=== PATIENT | male | born 1930 | race Caucasian/White ===

== ENCOUNTER 2018-03-06 23:31 | Inpatient (IN) ==
[2018-03-07 00:18] LABS: Baso # (Auto) 0.1 th/mm3 (0.0-0.2); Baso % (Auto) 0.4 % (0.0-2.0); Eos # (Auto) 0.3 th/mm3 (0.0-0.4); Eos % (Auto) 2.4 % (0.0-4.0); Hematocrit 41.9 % (39.0-51.0); Hemoglobin 14.2 gm/dL (13.0-17.0); Lymph % (Auto) 8.7 % (9.0-44.0); Mean Corpuscular HGB Conc 33.9 % (32.0-36.0); Mean Corpuscular Hemoglobin 32.6 pg (27.0-34.0); Mean Corpuscular Volume 96.4 fL (80.0-100.0); Mean Platelet Volume 9.6 fL (7.0-11.0); Mono # (Auto) 0.7 th/mm3 (0.0-0.9); Mono % (Auto) 6.1 % (0.0-8.0); Neut # (Auto) 9.6 th/mm3 (1.8-7.7); Neut % (Auto) 82.4 % (16.0-70.0); Platelet Count 164 th/mm3 (150-450); Red Blood Count 4.35 mil/mm3 (4.50-5.90); Red Cell Distribution Width 12.8 % (11.6-17.2); White Blood Count 11.6 th/mm3 (4.0-11.0)
[2018-03-07 00:19] LABS: Bilirubin,Urine Negative (Negative); Clarity,Urine Clear (Clear); Color,Urine Yellow (Yellw/Straw); Glucose,Urine (UA) Negative (Negative); Hyaline Casts,Urine 1 /lpf (0-3); Leukocyte Esterase,Urine Negative (Negative); Mucus,Urine Few /lpf (Occasional); Nitrite,Urine Negative (Negative); Specific Gravity,Urine 1.016 (1.002-1.035)
--- NOTE | 2018-03-07 00:27 | XR ---
EXAM DATE: 03/07/2018 12:06 AM EDT AGE/SEX: 88 years / Male INDICATIONS: Trauma due to fall. CLINICAL DATA: This is the patient's initial encounter. Patient reports that signs and symptoms have been present for 1 day and indicates a pain score of Nonresponsive. MEDICAL/SURGICAL HISTORY: Non-responsive. Pacemaker. COMPARISON: POI, XR CHEST PA AND LAT, 03/01/2015. . FINDINGS: Dual-lead pacemaker in place. Patchy perihilar opacities with left lower lobe airspace disease. Cardi ac silhouette is mildly enlarged with indistinct central pulmonary vascularity. Remainder of the exam is unchanged. CONCLUSION: 1. Cardiomegaly with mild pulmonary vascular congestion. 2. Mild left lower lobe airspace disease. Electronically signed by: Roger Drake MD 03/07/2018 12:26 AM EDT
[2018-03-07 00:37] LABS: Albumin 3.3 g/dL (3.4-5.0); Anion Gap 13 meq/L (5-15); Aspartate Aminotransferase 19 U/L (15-37); Blood Urea Nitrogen 26 mg/dL (7-18); Calcium 8.6 mg/dL (8.5-10.1); Carbon Dioxide 22.9 meq/L (21.0-32.0); Chloride 106 meq/L (98-107); Glomerular Filtration Rate 40 mL/min (>89); Glucose,Random 181 mg/dL (74-106); Sodium 142 meq/L (136-145)
[2018-03-07 00:44] LABS: Alanine Aminotransferase 23 U/L (12-78); Alkaline Phosphatase 63 U/L (45-117); Total Protein 7.1 g/dL (6.4-8.2); Troponin I 0.02 ng/mL (0.02-0.05)
[2018-03-07 00:45] LABS: Creatine Kinase 56 U/L (39-308)
--- NOTE | 2018-03-07 00:53 | CT ---
EXAM DATE: 03/07/2018 12:38 AM EDT AGE/SEX: 88 years / Male INDICATIONS: Trauma, fall. CLINICAL DATA: This is the patient's initial encounter. Patient reports that signs and symptoms have been present for 1 day and indicates a pain score of 0/10. MEDICAL/SURGICAL HISTORY: Cerebrovascular disease. Pacemaker. RADIATION DOSE: 26.31 CTDI (mGy) COMPARISON: POI, XR SPINE CERVICAL (MIN 4 VIEWS), 08/31/2016. . TECHNIQUE: Contiguous axial images were obtained using helical multirow detector technique. The vol umetric data was post-processed with multiplanar reconstruction in oblique axial, sagittal, and coron al planes. Using automated exposure control and adjustment of the mA and/or kV according to patient s ize, radiation dose was kept as low as reasonably achievable to obtain optimal diagnostic quality purvi ges. DICOM format image data is available electronically for review and comparison. FINDINGS: OSSEOUS STRUCTURES: Vertebral body heights are maintained. Osseous structures are intact without evid ence for acute bony fracture. Dens is intact. ALIGNMENT: Loss of normal cervical lordosis with subtle less than 2 mm retrolisthesis of C5 on C6. Th ere is less than 2 mm anterolisthesis of C7 on T1. There is a normal C1-2 relationship. Facets are n ormally aligned. SOFT TISSUES: There is no significant prevertebral soft tissue hematoma. No significant cervical kinza nopathy or gross mass. The thyroid appears unremarkable. Visualized lung apices are clear without pn eumothorax. ADDITIONAL FINDINGS: Advanced multilevel degenerative spondylosis most prominently at C4-5 and C5-6 w ith severe disc space narrowing and posterior disc osteophytes. Multilevel prominent facet arthropath y most prominently on the left at C2-3 and C3-4. Mild bony central canal narrowing at C4-5 and C5-6. Bony neural foraminal narrowing at C3-4 on the right and C4-5 bilaterally. 1. No acute fracture. 2. Subtle 2 mm retrolisthesis of C5 on C6 and anterolisthesis of C7 on T1 likely due to degenerative facet arthrosis. 3. Advanced multilevel degenerative spondylosis of the cervical spine most prominently at C4-5 and C 5-6. Electronically signed by: Roger Drake MD 03/07/2018 12:52 AM EDT
--- NOTE | 2018-03-07 00:57 | CT ---
EXAM DATE: 03/07/2018 12:37 AM EDT AGE/SEX: 88 years / Male INDICATIONS: Trauma, fall. CLINICAL DATA: This is the patient's initial encounter. Patient reports that signs and symptoms have been present for 1 day and indicates a pain score of 0/10. MEDICAL/SURGICAL HISTORY: Cerebrovascular disease. Pacemaker. RADIATION DOSE: 52.13 CTDI (mGy) COMPARISON: Report of 12/10/2011. TECHNIQUE: CT of the head without contrast. Using automated exposure control and adjustment of the mA and/or kV according to patient size, radiation dose was kept as low as reasonably achievable to ob tain optimal diagnostic quality images. DICOM format image data is available electronically for revi ew and comparison. FINDINGS: Cerebrum: Left thalamic lacunar infarct. Encephalomalacia in the right centrum semiovale, stable by r eport. Moderate diffuse cerebral atrophy. The ventricles are normal for degree of atrophy. No evidenc e of midline shift, mass lesion, hemorrhage or acute infarction. No extraaxial fluid collections are seen. Posterior Fossa: Encephalomalacia in the left cerebellar hemisphere and inferior right cerebral jeni sphere. These appear stable by report. The 4th ventricle is midline. The cerebellopontine angle is u nremarkable. Extracranial: The visualized portion of the orbits is intact. Skull: The calvaria is intact. No evidence of skull fracture. 1. Stable appearance when compared to CT report of 12/10/2011. 2. Left thalamic lacunar infarct. 3. Encephalomalacia in the right centrum semiovale, left cerebellar hemisphere and inferior right ce rebellar hemisphere. . Electronically signed by: Roger Drake MD 03/07/2018 12:55 AM EDT
[2018-03-07] MEDS ORDERED: Dextrose 50% in Water 50 ML Vial IV.PUSH PRN (02:17)
--- NOTE | 2018-03-07 02:35 | ED ---
HPI General Chief complaint: Altered Mental Status Stated complaint: AMS/Evac Time Seen by Provider: 03/06/18 23:37 History of Present Illness HPI Narrative: 88-year-old male presents to the emergency department after falling in the bathroom at home. He states he did not actually fall but more so lowered himself to the ground as result of weakness and inability to stand. His found him hanging onto the towel rack on the wall trying to pull himself up. He was down for approximately 15 minutes. Patient has no reports of pain but he is unable to stand steadily. He does have a history of prior CVA and has a weak left side Related Data Home Medications Medication Instructions Recorded Confirmed D3-[id number]-soy [id number] 1,200 unit PO DAILY 03/07/18 03/07/18 [Prostate 2.4] acetaminophen 325 mg PO Q4-6H PRN 03/07/18 03/07/18 aspirin [Aspir-81] 81 mg PO DAILY 03/07/18 03/07/18 calcium carbonate [Calcium 500] 1 mg PO DAILY 03/07/18 03/07/18 carvedilol 3.125 mg PO BID 03/07/18 03/07/18 finasteride 5 mg PO DAILY 03/07/18 03/07/18 gabapentin 300 mg PO TID 03/07/18 03/07/18 levothyroxine 50 mcg PO DAILY 03/07/18 03/07/18 meclizine 25 mg PO BID 03/07/18 03/07/18 multivitamin 1 cap PO DAILY 03/07/18 03/07/18 pantoprazole 40 mg PO DAILY 03/07/18 03/07/18 sertraline 25 mg PO DAILY 03/07/18 03/07/18 simvastatin 40 mg PO QPM 03/07/18 03/07/18 vitamin B complex 1 PO DAILY 03/07/18 Allergies Allergy/AdvReac Type Severity Reaction Status Date / Time No Known Allergies Allergy Verified 03/06/18 23:46 Review of Systems Except as stated in HPI: all other systems reviewed are negative [facility] Social History Social History Substance History: No History of Abuse Smoking Status: Former smoker Tobacco Type: Cigarettes How Often Do You Have a Drink Containing Alcohol: Monthly or less Recent Travel in [facility] within the Last 8 Weeks: No Recent Out of Country Travel within the Last 8 Weeks: No Immunization History Tetanus Immunization: >5 Years Hx Influenza Vaccine This Season: Yes Exam Narrative Exam Narrative: GENERAL: 88-year-old male in no distress SKIN: Focused skin assessment warm/dry. HEAD: Atraumatic. Normocephalic. EYES: Pupils equal and round. No scleral icterus. No injection or drainage. ENT: No nasal bleeding or discharge. Mucous membranes pink and moist. He is wearing hearing aids and is very hard of hearing NECK: Trachea midline. No JVD. CARDIOVASCULAR: Subcutaneous pacer in the left chest. Paced rhythm on the monitor normal heart sounds EKG shows a paced rhythm with no acute abnormalities. RESPIRATORY: No accessory muscle use. Clear to auscultation. Breath sounds equal bilaterally. GASTROINTESTINAL: Abdomen soft, non-tender, nondistended. Hepatic and splenic margins not palpable. MUSCULOSKELETAL: No obvious deformities. No clubbing. No cyanosis. No edema. NEUROLOGICAL: Patient has no acute focal deficits he does have a left-sided weakness which is from a. Prior CVA. We did not allow the patient to stand or walk secondary to his weakness and fall prior to arrival PSYCHIATRIC: Appropriate mood and affect; insight and judgment normal. Course Initial Documented Vital Signs Temperature 99.6 F 03/06/18 23:37 Pulse Rate 107 H 03/06/18 23:37 Respiratory Rate 22 03/06/18 23:37 Blood Pressure 154/81 H 03/06/18 23:37 Pulse Oximetry 97 03/06/18 23:37 Last Documented Vital Signs Temperature 97.9 F 03/08/18 04:00 Pulse Rate 73 03/08/18 04:00 Respiratory Rate 20 03/08/18 04:00 Blood Pressure 159/87 H 03/08/18 04:00 Pulse Oximetry 98 03/08/18 04:00 Medical Decision Making [facility] Narrative Medical decision making narrative: Patient was seen and evaluated in the emergency department. His CT scan revealed a new lacunar infarct. His lab studies were consistent with dehydration and renal insufficiency. Patient also had a slightly elevated BNP. Given his age and comorbidities and multiple issues at that it would be prudent to admit the patient. Dr. Madrid was called and accepted the patient he will be admitted to the [facility] service. Lab Data Result diagrams: 03/07/18 00:05 03/07/18 00:05 Lab Results 0703/07/18 03/07/18 Range/Units 00:05 00:05 00:05 WBC 11.6 H (4.0-11.0) th/mm3 RBC 4.35 L (4.50-5.90) mil/mm3 Hgb 14.2 (13.0-17.0) gm/dL Hct 41.9 (39.0-51.0) % MCV 96.4 (80.0-100.0) fL MCH 32.6 (27.0-34.0) pg MCHC 33.9 (32.0-36.0) % RDW 12.8 (11.6-17.2) % Plt Count 164 (150-450) th/mm3 MPV 9.6 (7.0-11.0) fL Neut % (Auto) 82.4 H (16.0-70.0) % Lymph % (Auto) 8.7 L (9.0-44.0) % [place] % (Auto) 6.1 (0.0-8.0) % Eos % (Auto) 2.4 (0.0-4.0) % Baso % (Auto) 0.4 (0.0-2.0) % Neut # (Auto) 9.6 H (1.8-7.7) th/mm3 Lymph # (Auto) 1.0 (1.0-4.8) th/mm3 [place] # (Auto) 0.7 (0.0-0.9) th/mm3 Eos # (Auto) 0.3 (0.0-0.4) th/mm3 Baso # (Auto) 0.1 (0.0-0.2) th/mm3 WBC Differential . Differential Comment Auto diff final Sodium 142 (136-145) meq/L Potassium 4.0 (3.5-5.1) meq/L Chloride 106 (98-107) meq/L Carbon Dioxide 22.9 (21.0-32.0) meq/L Anion Gap 13 (5-15) meq/L BUN 26 H (7-18) mg/dL Creatinine 1.65 H (0.60-1.30) mg/dL Estimated GFR 40 L (>89) mL/min POC Glucose (68-110) mg/dl Random Glucose 181 H (74-106) mg/dL Calcium 8.6 (8.5-10.1) mg/dL Total Bilirubin 0.9 (0.2-1.0) mg/dL AST 19 (15-37) U/L ALT 23 (12-78) U/L Alkaline Phosphatase 63 (45-117) U/L Total Creatine Kinase 56 (39-308) U/L Troponin I 0.02 (0.02-0.05) ng/mL Total Protein 7.1 (6.4-8.2) g/dL Albumin 3.3 L (3.4-5.0) g/dL Urine Color Yellow (Yellw/Straw) Urine Clarity Clear (Clear) Urine pH 7.0 (5.0-8.5) Ur Specific [place] 1.016 (1.002-1.035) Urine Protein Negative (Neg-Trace) mg/dL Urine Glucose (UA) Negative (Negative) mg/dL Urine Ketones Negative (Negative) mg/dL Urine Occult Blood Negative (Negative) Urine Nitrate Negative (Negative) Urine Bilirubin Negative (Negative) Urine Urobilinogen 2.0 H (Less than 2) mg/dL Ur Leukocyte Esterase Negative (Negative) Urine RBC 14 H (0-3) /hpf Urine WBC 2 (0-5) /hpf Hyaline Casts 1 (0-3) /lpf Urine Mucus Few H (Occasional) /lpf 03/07/18 03/07/18 03/07/18 Range/Units 09:07 12:45 17:07 WBC (4.0-11.0) th/mm3 RBC (4.50-5.90) mil/mm3 Hgb (13.0-17.0) gm/dL Hct (39.0-51.0) % MCV (80.0-100.0) fL MCH (27.0-34.0) pg MCHC (32.0-36.0) % RDW (11.6-17.2) % Plt Count (150-450) th/mm3 MPV (7.0-11.0) fL Neut % (Auto) (16.0-70.0) % Lymph % (Auto) (9.0-44.0) % [place] % (Auto) (0.0-8.0) % Eos % (Auto) (0.0-4.0) % Baso % (Auto) (0.0-2.0) % Neut # (Auto) (1.8-7.7) th/mm3 Lymph # (Auto) (1.0-4.8) th/mm3 [place] # (Auto) (0.0-0.9) th/mm3 Eos # (Auto) (0.0-0.4) th/mm3 Baso # (Auto) (0.0-0.2) th/mm3 WBC Differential Differential Comment Sodium (136-145) meq/L Potassium (3.5-5.1) meq/L Chloride (98-107) meq/L Carbon Dioxide (21.0-32.0) meq/L Anion Gap (5-15) meq/L BUN (7-18) mg/dL Creatinine (0.60-1.30) mg/dL Estimated GFR (>89) mL/min POC Glucose 128 H 109 93 (68-110) mg/dl Random Glucose (74-106) mg/dL Calcium (8.5-10.1) mg/dL Total Bilirubin (0.2-1.0) mg/dL AST (15-37) U/L ALT (12-78) U/L Alkaline Phosphatase (45-117) U/L Total Creatine Kinase (39-308) U/L Troponin I (0.02-0.05) ng/mL Total Protein (6.4-8.2) g/dL Albumin (3.4-5.0) g/dL Urine Color (Yellw/Straw) Urine Clarity (Clear) Urine pH (5.0-8.5) Ur Specific [place] (1.002-1.035) Urine Protein (Neg-Trace) mg/dL Urine Glucose (UA) (Negative) mg/dL Urine Ketones (Negative) mg/dL Urine Occult Blood (Negative) Urine Nitrate (Negative) Urine Bilirubin (Negative) Urine Urobilinogen (Less than 2) mg/dL Ur Leukocyte Esterase (Negative) Urine RBC (0-3) /hpf Urine WBC (0-5) /hpf Hyaline Casts (0-3) /lpf Urine Mucus (Occasional) /lpf 03/07/18 Range/Units 20:25 WBC (4.0-11.0) th/mm3 RBC (4.50-5.90) mil/mm3 Hgb (13.0-17.0) gm/dL Hct (39.0-51.0) % MCV (80.0-100.0) fL MCH (27.0-34.0) pg MCHC (32.0-36.0) % RDW (11.6-17.2) % Plt Count (150-450) th/mm3 MPV (7.0-11.0) fL Neut % (Auto) (16.0-70.0) % Lymph % (Auto) (9.0-44.0) % [place] % (Auto) (0.0-8.0) % Eos % (Auto) (0.0-4.0) % Baso % (Auto) (0.0-2.0) % Neut # (Auto) (1.8-7.7) th/mm3 Lymph # (Auto) (1.0-4.8) th/mm3 [place] # (Auto) (0.0-0.9) th/mm3 Eos # (Auto) (0.0-0.4) th/mm3 Baso # (Auto) (0.0-0.2) th/mm3 WBC Differential Differential Comment Sodium (136-145) meq/L Potassium (3.5-5.1) meq/L Chloride (98-107) meq/L Carbon Dioxide (21.0-32.0) meq/L Anion Gap (5-15) meq/L BUN (7-18) mg/dL Creatinine (0.60-1.30) mg/dL Estimated GFR (>89) mL/min POC Glucose 127 H (68-110) mg/dl Random Glucose (74-106) mg/dL Calcium (8.5-10.1) mg/dL Total Bilirubin (0.2-1.0) mg/dL AST (15-37) U/L ALT (12-78) U/L Alkaline Phosphatase (45-117) U/L Total Creatine Kinase (39-308) U/L Troponin I (0.02-0.05) ng/mL Total Protein (6.4-8.2) g/dL Albumin (3.4-5.0) g/dL Urine Color (Yellw/Straw) Urine Clarity (Clear) Urine pH (5.0-8.5) Ur Specific [place] (1.002-1.035) Urine Protein (Neg-Trace) mg/dL Urine Glucose (UA) (Negative) mg/dL Urine Ketones (Negative) mg/dL Urine Occult Blood (Negative) Urine Nitrate (Negative) Urine Bilirubin (Negative) Urine Urobilinogen (Less than 2) mg/dL Ur Leukocyte Esterase (Negative) Urine RBC (0-3) /hpf Urine WBC (0-5) /hpf Hyaline Casts (0-3) /lpf Urine Mucus (Occasional) /lpf Imaging Data Radiologist's impression: Chest X-Ray 03/06/18 23:46 CONCLUSION: 1. Cardiomegaly with mild pulmonary vascular congestion. 2. Mild left lower lobe airspace disease. Cervical Spine CT 03/07/18 23:49 CONCLUSION: Head CT 03/07/18 23:49 CONCLUSION: Discharge Plan Discharge Disposition Patient Disposition: 30 Still Patient Discharge Condition Condition: Stable Physicians Team ED Provider: Davide Wylie Primary Care Provider: UNKNOWN, Attending Provider: Farhad Broderick Other Providers: Marty Salguero ; Max Santana ; [facility],Agency Discharge Interventions Interventions: ED Discharge Assessment Last Done: 03/07/18 04:33 Vital Signs Last Done: 03/07/18 03:30 Status ED Status: Left Department Discharge Information Discharge Date/Time: 03/07/18 04:26
--- NOTE | 2018-03-07 02:44 | P.HPIM ---
History of Present Illness Primary Care Physician: UNKNOWN History of Present Illness: This is an 88-year-old male with a PMH of CVA w/ Residual Left-Sided Weakness, HTN and CAD s/p Pacemaker who was brought to the ER after weakness w/ fall. Per report, pt was trying to get to the bathroom but had significant weakness and was found by family holding onto the towel bar. No LOC or head trauma. Denies slurred speech or facial droop. On arrival, BP 154/81, HR 107, O2 sat 97 % on 6L NC, Temp 9.6. W BC 11.6. Creatinine 1.65, no previous labs for comparison. CT Head with left thalamic lacunar infarct. CT C-Spine with no acute fracture. CXR with mild left lower lobe airspace disease, cardiomegaly with mild pulmonary vascular congestion. Per patient and family, pt previously on Coumadin for h/o CVA, however taken off due to concern for ICH. Now on ASA 81mg qd, follows w/ Dr. Pruett and Dr. Weeks as outpatient. - Diagnosis (1) CVA (cerebral vascular accident) (2) Fall (3) Renal insufficiency Review of Systems All other systems reviewed negative except as stated in HPI [facility] - History History Provided By: Patient - Medical History Medical History: Medical History (Last Updated 03/06/18 @ 23:42 by Nasim Day) CVA (cerebral vascular accident) Surgical history unknown - Tobacco History Smoking Status: Former smoker Tobacco Type: Cigarettes - Alcohol History How Often Do You Have a Drink Containing Alcohol: Monthly or less - Substance Use History Substance History: No History of Abuse - Travel History Recent Travel in the [place] Within the Last 8 Weeks: No Recent Travel Out of the Country Within the Last 8 Weeks: No - Immunization History Tetanus Immunization: >5 Years Hx Influenza Vaccine This Season: Yes Medications and Allergies Active Medications: Active Medications Aspirin (Aspirin Chew) 81 mg PO DAILY NITO Atorvastatin Calcium (Lipitor) 10 mg PO HS NITO Dextrose (D50w Vial) 50 ml IV.PUSH UNSCH PRN PRN Reason: PER HYPOGLYCEMIA PROTOCOL Enalaprilat (Vasotec Inj) 1.25 mg IV.PUSH Q4H PRN PRN Reason: For SBP > 220 or DBP > 120 Glucagon (Glucagon Inj) 1 mg OTHER UNSCH PRN PRN Reason: for Hypoglycemia Protocol Sodium Chloride (Ns Inj) 1,000 mls @ 70 mls/hr IV.CONT .[id number] NITO Insulin Aspart (Novolog Insulin Correctional Sugar Inj) 0 unit SQ ACHS NITO; Protocol Sodium Chloride (Ns Flush) 2 ml IV.FLUSH BID NITO Sodium Chloride (Ns Flush) 2 ml IV.FLUSH PRN PRN PRN Reason: FLUSH AFTER USING IV ACCESS Allergies Allergy/AdvReac Type Severity Reaction Status Date / Time No Known Allergies Allergy Verified 03/06/18 23:46 Home Medications Medication Instructions Recorded Confirmed Type Unable to Obtain Home Meds 03/06/18 03/06/18 History Exam Vital signs: Vital Signs 03/06/18 23:37 Temperature 99.6 F Pulse Rate 107 H Respiratory Rate 22 Blood Pressure 154/81 H Pulse Oximetry 97 Intake & Output 03/06/18 03/06/18 03/07/18 06:59 18:59 06:59 Weight 83.915 kg Narrative: PE: GENERAL: Very pleasant elderly white male in no acute distress. Family at bedside. Very [place]. HEENT: PERRLA, EOMI. No scleral icterus or conjunctival pallor. No lid lag or facial droop. CARDIOVASCULAR: Regular rate and rhythm. No obvious murmurs to auscultation. No chest tenderness to palpation. RESPIRATORY: No obvious rhonchi or wheezing. Clear to auscultation. Breath sounds equal bilaterally. GASTROINTESTINAL: Abdomen soft, non-tender, nondistended. BS normal. MUSCULOSKELETAL: Extremities without clubbing, cyanosis, or edema. No obvious deformities. NEUROLOGICAL: Awake, alert and oriented x4. No new focal neurologic deficits, left-sided weakness. Moving both upper and lower extremities spontaneously. Results - Labs CBC & Chem 7: 03/07/18 00:05 03/07/18 00:05 Labs: Short CBC 03/07/18 Range/Units 00:05 WBC 11.6 H (4.0-11.0) th/mm3 Hgb 14.2 (13.0-17.0) gm/dL Hct 41.9 (39.0-51.0) % Plt Count 164 (150-450) th/mm3 BMP 03/07/18 00:05 Sodium 142 Potassium 4.0 Chloride 106 Carbon Dioxide 22.9 BUN 26 H Creatinine 1.65 H Calcium 8.6 Cardiac Enzymes 03/07/18 Range/Units 00:05 Total Creatine Kinase 56 (39-308) U/L Troponin I 0.02 (0.02-0.05) ng/mL Liver Function 03/07/18 Range/Units 00:05 Total Bilirubin 0.9 (0.2-1.0) mg/dL AST 19 (15-37) U/L ALT 23 (12-78) U/L Alkaline Phosphatase 63 (45-117) U/L Albumin 3.3 L (3.4-5.0) g/dL Urine 03/07/18 Range/Units 00:05 Urine Color Yellow (Yellw/Straw) Urine Clarity Clear (Clear) Urine pH 7.0 (5.0-8.5) Ur Specific [place] 1.016 (1.002-1.035) Urine Protein Negative (Neg-Trace) mg/dL Urine Glucose (UA) Negative (Negative) mg/dL - Imaging Impressions Chest X-Ray 03/06/18 23:46 CONCLUSION: Cervical Spine CT 03/07/18 23:49 CONCLUSION: Head CT 03/07/18 23:49 CONCLUSION: Caprini VTE Risk Assessment Caprini VTE Risk Assessment: Moderate/High Risk (score >= 2) Caprini Risk Assessment Model: Point Value = 1 Point Value = 2 Point Value = 3 Point Value = 5 Age 41-60 Minor surgery BMI > 25 kg/m2 Swollen legs Varicose veins or History of unexplained or recurrent spontaneous Oral contraceptives or hormone replacement Sepsis (< 1 month) Serious lung disease, including pneumonia (< 1 month) Abnormal pulmonary function Acute myocardial infarction Congestive heart failure (< 1 month) History of inflammatory bowel disease Medical patient at bed rest Age 61-74 Arthroscopic surgery Major open surgery (> 45 min) Laparoscopic surgery (> 45 min) Malignancy Confined to bed (> 72 hours) Immobilizing plaster cast Central venous access Age >= 75 History of VTE Family history of VTE Factor V Leiden Prothrombin [id number] Lupus anticoagulant Anticardiolipin antibodies Elevated serum homocysteine Heparin-induced thrombocytopenia Other congenital or acquired thrombophilia Stroke (< 1 month) Elective arthroplasty Hip, pelvis, or leg fracture Acute spinal cord injury (< 1 month) Prophylaxis Regimen: Total Risk Factor Score Risk Level Prophylaxis Regimen 0-1 Low Early ambulation 2 Moderate Order ONE of the following: *Sequential Compression Device (SCD) *Heparin 5000 units SQ BID 3-4 Higher Order ONE of the following medications: *Heparin 5000 units SQ TID *Enoxaparin/Lovenox 40 mg SQ daily (WT < 150 kg, CrCl > 30 mL/min) *Enoxaparin/Lovenox 30 mg SQ daily (WT < 150 kg, CrCl > 10-29 mL/min) *Enoxaparin/Lovenox 30 mg SQ BID (WT < 150 kg, CrCl > 30 mL/min) AND/OR *Sequential Compression Device (SCD) 5 or more Highest Order ONE of the following medications: *Heparin 5000 units SQ TID (Preferred with Epidurals) *Enoxaparin/Lovenox 40 mg SQ daily (WT < 150 kg, CrCl > 30 mL/min) *Enoxaparin/Lovenox 30 mg SQ daily (WT < 150 kg, CrCl > 10-29 mL/min) *Enoxaparin/Lovenox 30 mg SQ BID (WT < 150 kg, CrCl > 30 mL/min) AND *Sequential Compression Device (SCD) Assessment and Plan - Assessment (1) CVA (cerebral vascular accident) Code(s): I63.9 - Cerebral infarction, unspecified Status: Acute (2) Fall Code(s): W19.XXXA - Unspecified fall, initial encounter Status: Acute (3) Renal insufficiency Code(s): N28.9 - Disorder of kidney and ureter, unspecified Status: Acute - Plan A/P: 1. CVA: h/o CVA w/ left-sided weakness, on ASA, CT Head w/ left thalamic infarct. Following w/ Dr. Pruett, will consult for further evaluation/ recommendations. Unable to obtain MRI due to pacemaker. Will check Echo to eval for valvular abnormality/cardiomyopathy. Keep NPO, Consult Speech for formal speech evaluation. Check Lipid Profile/Hgb A1c. ASA/Statin. 2. Renal Insufficiency: Creatinine 1.65, no previous labs for comparison. U/ a negative, IVF-caution w/ pulmonary congestion seen on CXR. Monitor I/O, repeat labs in am. 3. Fall: s/p fall in bathroom secondary to weakness, no head trauma or LOC reported. CT C-Spine w/ no acute fracture. PT for eval/tx. 4. DVT Prophylaxis: SCD/Teds 5. Social work for d/c planning as needed 6. Case discussed w/ ER physician at length, labs/records/imaging reviewed by me.
[2018-03-07] MEDS: Sod Chloride 0.9% Inj 1,000 ML IV.CONT SCH ×2 (02:46→18:40)
[2018-03-07] MEDS: Insulin NovoLOG Aspart Correctional Sugar Inj SQ SCH ×3 (09:09→20:30)
--- NOTE | 2018-03-07 12:54 | MB ---
cc: Marty Howell MD DATE: 03/07/2018 HISTORY OF PRESENT ILLNESS: The patient is an 88-year-old right-handed man with hypertension, hypercholesterolemia, pacemaker, takes an aspirin a day. He has a history of atrial fibrillation, possibly some prostate cancer with high PSA, hypothyroidism, COPD with chronic cough. He has had some falls in the past, last maybe 3-4 months ago. Uses a walker, lives with his . He had a stroke 6 years ago with some left-sided weakness. He had a seizure about a year ago when he was on tramadol and that was stopped. He sees Dr. Pruett in followup neurologically. Last evening, he had some peanut brittle, did not finish his dinner, had a cough and then was trying to go the bathroom, had a cough and then vomited, which is unusual for him, and then he slowly slid to the floor spread-jackson by his legs. He was still able to communicate. He did not pass out. His did not think he was particularly pale. No new weakness. He has some chronic right shoulder problems. MEDICATIONS AT HOME: 1. Meclizine 25 twice a day. 2. Acetaminophen. 3. Simvastatin. 4. Sertraline 25 a day. 5. Gabapentin 300 t.i.d. 6. Finasteride. 7. Multivitamins. 8. Baby aspirin. 9. Protonix. 10. Thyroid medicine. 11. Carvedilol. SOCIAL HISTORY: He is not smoker, has 1 drink a day. Lives with his . FAMILY HISTORY: Positive for Hodgkin disease in his father, negative for seizure or stroke. REVIEW OF SYSTEMS: According to his , no diabetes, renal, hepatic disease, lupus, ulcer, definite cancer. PHYSICAL EXAMINATION: VITAL SIGNS: The spanish literature professor initially could not get a blood pressure on him, afebrile. Blood pressure here initially 154/81 now 134/77. EKG is paced. NECK: There were no carotid bruits. HEART: Regular rhythm. I did not detect a murmur. NEUROLOGIC: Pupils are equal. Visual jc are full. Extraocular movements intact without nystagmus. Face was symmetric with normal sensation. Speech is a little dysarthric, but not aphasic. He is able to repeat and knows the month and the year. Follows commands well. Tongue was midline. No drift. He had normal strength in bilateral upper and lower extremities. DTRs are trace. Toes were downgoing bilaterally. Pinprick was intact throughout. He has some increased tone in the left upper extremity. Has some ataxia on the left upper extremity and also, some on the right upper extremity where he hits his nose very hard on [id number] several times in a row. LABORATORY DATA: CBC: White count 11.6, otherwise normal. UA was negative. Basic metabolic profile: Creatinine 1.65, otherwise normal LFTs. Troponin CPK normal. Albumin 3.3. He had a cervical spine CT, had some diffuse DJD, 2 mm retrolisthesis C5-C6 and C7 on T1, and diffuse arthritis, mild spinal stenosis C4-C5, and a chest x-ray showed mild cardiomegaly with mild CHF, mild left lower airspace disease. He had CT scan of the brain, this was read as stable when compared to 12/09/2017. Left thalamic lacunar infarct and encephalomalacia on the right centrum semiovale, left cerebellum, and inferior right cerebellum. Review of the films, he has a large right medial cerebellar and left lateral cerebellar infarct, old, a small to medium sized left thalamic infarct, and an infarct in the high right parietal region almost in the anterior cerebral artery territory. All looked old, I do not see anything new. There are no significant old records here from [place]. IMPRESSION: I think he looks away seven looking at his old records him. He is to go back to the nose and the statement did find some air in his old records. I did review a CT scan from 2016 and that is unchanged in all of those 4 locations for a stroke. He had an MRI of the brain in 2011, which indicated that he had an old right cerebellar infarct at that time and then acute new ones. I think probably had some low blood pressure. We will check some standing blood pressures on him, have physical therapy ambulate him. I think it is unlikely this is a new stroke. He is, however, at a high risk for strokes not anticoagulated, as I explained to the family, even though he is a fall risk. I think he should be on anticoagulation with all the infarcts he has had in the past or else, he more than likely will have another stroke, although today I do not think this was a stroke as much as probably a vasovagal episode. We will check an EEG and if that is done, then he could be discharged. We will check some standing blood pressures and if those are okay he could be discharged. MD LYNN Smith/ch/ll , 11:43 AM , 11:53 AM
--- NOTE | 2018-03-07 15:10 | P.PN ---
Subjective Interval history: no complains- baseline ambulates with a walker since his stroke 6 years ago with left sided mild weakness no headaches, nausea or vomiting denies any diarrhea Physical Exam Vital signs: Vital Signs 03/06/18 23:37 03/07/18 03:30 03/07/18 03:54 Temperature 99.6 F Pulse Rate 107 H 96 H 100 H Respiratory Rate 22 18 21 Blood Pressure 154/81 H 127/66 127/66 Pulse Oximetry 97 95 96 03/07/18 04:00 03/07/18 10:54 03/07/18 11:57 Temperature 97.6 F 98.6 F 97.7 F Pulse Rate 85 86 64 Respiratory Rate 18 18 18 Blood Pressure 118/64 134/77 135/65 Pulse Oximetry 96 96 96 Intake & Output 03/06/18 03/07/18 03/07/18 18:59 06:59 18:59 Weight 83.915 kg Narrative: awake and alert, oriented x 3,s peech clear anicteric, pupils equal, EOM ful range of motion mild right facial asymmetry tongue midline good gag lungs- no rales regualr rhythm= paced abdomen soft, nontender xtremties no edema no calf tendernss motor 0 5/5 on individual muscle testing - Urinary Catheter Management Indwelling Urethral Catheter Cath placed during this visit: yes Reason for continuing: Other continuation reason Insertion date: 03/06/18 Insertion time: 23:59 Results - Labs CBC & Chem 7: 03/08/18 07:59 03/08/18 07:59 Laboratory Results - last 24 hr 03/07/18 03/07/18 03/07/18 00:05 00:05 00:05 WBC 11.6 H RBC 4.35 L Hgb 14.2 Hct 41.9 MCV 96.4 MCH 32.6 MCHC 33.9 RDW 12.8 Plt Count 164 MPV 9.6 Neut % (Auto) 82.4 H Lymph % (Auto) 8.7 L [place] % (Auto) 6.1 Eos % (Auto) 2.4 Baso % (Auto) 0.4 Neut # (Auto) 9.6 H Lymph # (Auto) 1.0 [place] # (Auto) 0.7 Eos # (Auto) 0.3 Baso # (Auto) 0.1 WBC Differential . Differential Comment Auto diff final Sodium 142 Potassium 4.0 Chloride 106 Carbon Dioxide 22.9 Anion Gap 13 BUN 26 H Creatinine 1.65 H Estimated GFR 40 L POC Glucose Random Glucose 181 H Calcium 8.6 Total Bilirubin 0.9 AST 19 ALT 23 Alkaline Phosphatase 63 Total Creatine Kinase 56 Troponin I 0.02 Total Protein 7.1 Albumin 3.3 L Urine Color Yellow Urine Clarity Clear Urine pH 7.0 Ur Specific [place] 1.016 Urine Protein Negative Urine Glucose (UA) Negative Urine Ketones Negative Urine Occult Blood Negative Urine Nitrate Negative Urine Bilirubin Negative Urine Urobilinogen 2.0 H Ur Leukocyte Esterase Negative Urine RBC 14 H Urine WBC 2 Hyaline Casts 1 Urine Mucus Few H 03/07/18 03/07/18 09:07 12:45 WBC RBC Hgb Hct MCV MCH MCHC RDW Plt Count MPV Neut % (Auto) Lymph % (Auto) [place] % (Auto) Eos % (Auto) Baso % (Auto) Neut # (Auto) Lymph # (Auto) [place] # (Auto) Eos # (Auto) Baso # (Auto) WBC Differential Differential Comment Sodium Potassium Chloride Carbon Dioxide Anion Gap BUN Creatinine Estimated GFR POC Glucose 128 H 109 Random Glucose Calcium Total Bilirubin AST ALT Alkaline Phosphatase Total Creatine Kinase Troponin I Total Protein Albumin Urine Color Urine Clarity Urine pH Ur Specific [place] Urine Protein Urine Glucose (UA) Urine Ketones Urine Occult Blood Urine Nitrate Urine Bilirubin Urine Urobilinogen Ur Leukocyte Esterase Urine RBC Urine WBC Hyaline Casts Urine Mucus - Imaging Impressions Chest X-Ray 03/06/18 23:46 CONCLUSION: 1. Cardiomegaly with mild pulmonary vascular congestion. 2. Mild left lower lobe airspace disease. Cervical Spine CT 03/07/18 23:49 CONCLUSION: Head CT 03/07/18 23:49 CONCLUSION: Assessment and Plan - Assessment (1) CVA (cerebral vascular accident) Code(s): I63.9 - Cerebral infarction, unspecified Status: Acute (2) Fall Code(s): W19.XXXA - Unspecified fall, initial encounter Status: Acute (3) Renal insufficiency Code(s): N28.9 - Disorder of kidney and ureter, unspecified Status: Acute - Plan 88 years old male right handed Possible vasovagal episode- neurologically intact 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 Salguero doubt stroke - CT Head w/ left thalamic infarct. - recommends starting OAC benefits outweighs risks- family agrees- at one point was on coumadin but DC due to frequent fall - start him on Coumadin MRI due to pacemaker. Will check Echo to eval for valvular abnormality/ cardiomyopathy. start diet . PT eval and treat- baseline uses a walker spoke with - one of their daughter is a nurse Acute KI Creatinine 1.65, no previous labs for comparison. U/a negative, IVF- Monitor I/O, repeat labs in am. History of elevated PSA ff by Dr. Johnson at one point was on Flomax but was DC by Neurologist/and PCP - currently on Proscar for some reason mckeon was placed- at ER- will DC and check voiding Speech therapy ff PT ff CM DC planning- SNF or home health Lovenox SQ for DVT prophylaxis
--- NOTE | 2018-03-07 18:01 | MG ---
cc: Marty Howell MD CLINICAL HISTORY: A 88-year-old man with history of multiple strokes, right parietal stroke, near syncope. DESCRIPTION OF RECORD: A 9 Hz, 40 microvolt symmetric posterior and diffuse rhythm is seen. Recording overall is synchronous and symmetric. No hemisphere asymmetries are noted. No epileptiform or seizure activity is seen. Hyperventilation is not performed. Photic stimulation is performed without significant posterior driving. IMPRESSION: Normal awake electroencephalogram. No evidence for a focal or diffuse abnormality. MD LYNN Smith/FRANDY , 05:41 PM , 05:45 PM
[2018-03-08] MEDS: Sod Chloride 0.9% Inj 1,000 ML IV.CONT SCH (06:22)
[2018-03-08 09:11] LABS: Baso % (Auto) 0.3 % (0.0-2.0); Eos # (Auto) 0.4 th/mm3 (0.0-0.4); Eos % (Auto) 4.3 % (0.0-4.0); Hematocrit 37.7 % (39.0-51.0); Hemoglobin 13.1 gm/dL (13.0-17.0); Lymph # (Auto) 1.6 th/mm3 (1.0-4.8); Lymph % (Auto) 18.2 % (9.0-44.0); Mean Corpuscular HGB Conc 34.8 % (32.0-36.0); Mean Corpuscular Hemoglobin 33.3 pg (27.0-34.0); Mean Corpuscular Volume 95.8 fL (80.0-100.0); Mean Platelet Volume 9.5 fL (7.0-11.0); Mono # (Auto) 0.7 th/mm3 (0.0-0.9); Mono % (Auto) 7.7 % (0.0-8.0); Neut # (Auto) 6.2 th/mm3 (1.8-7.7); Neut % (Auto) 69.5 % (16.0-70.0); Platelet Count 146 th/mm3 (150-450); Red Blood Count 3.93 mil/mm3 (4.50-5.90); White Blood Count 8.9 th/mm3 (4.0-11.0)
[2018-03-08 09:36] LABS: Albumin 2.8 g/dL (3.4-5.0); Anion Gap 8 meq/L (5-15); Aspartate Aminotransferase 18 U/L (15-37); Blood Urea Nitrogen 22 mg/dL (7-18); Calcium 7.9 mg/dL (8.5-10.1); Carbon Dioxide 22.9 meq/L (21.0-32.0); Chloride 111 meq/L (98-107); Glomerular Filtration Rate 55 mL/min (>89); Glucose,Random 93 mg/dL (74-106); Potassium 3.7 meq/L (3.5-5.1); Sodium 142 meq/L (136-145)
[2018-03-08 09:38] LABS: Cholesterol 154 mg/dL (120-200); Triglycerides 90 mg/dL (42-150)
[2018-03-08 09:42] LABS: Alanine Aminotransferase 19 U/L (12-78); Alkaline Phosphatase 50 U/L (45-117); Chol/HDL Ratio 3.37 Ratio; HDL Cholesterol 45.6 mg/dL (40.0-60.0); LDL Cholesterol,Calculated 90 mg/dL (0-99); Total Protein 6.6 g/dL (6.4-8.2)
[2018-03-08] MEDS: Enoxaparin Inj 30 MG/0.3 ML Syringe SQ SCH (09:55)
[2018-03-08] MEDS: Finasteride 5 MG Tablet PO SCH (09:55)
--- NOTE | 2018-03-08 10:25 | P.PNNEU ---
Subjective Subjective Comments: No acute events reported No headache No chest pain Active Medications: Active Medications Aspirin (Aspirin Chew) 81 mg PO DAILY [facility] Last Admin: 03/08/18 09:55 Dose: 81 mg Atorvastatin Calcium (Lipitor) 10 mg PO HS [facility] Last Admin: 03/07/18 20:30 Dose: 10 mg Dextrose (D50w Vial) 50 ml IV.PUSH UNSCH PRN PRN Reason: PER HYPOGLYCEMIA PROTOCOL Enalaprilat (Vasotec Inj) 1.25 mg IV.PUSH Q4H PRN PRN Reason: For SBP > 220 or DBP > 120 Enoxaparin Sodium (Lovenox Inj) 30 mg SQ DAILY [facility] Last Admin: 03/08/18 09:55 Dose: 30 mg Finasteride (Proscar) 5 mg PO DAILY [facility] Last Admin: 03/08/18 09:55 Dose: 5 mg Glucagon (Glucagon Inj) 1 mg OTHER UNSCH PRN PRN Reason: for Hypoglycemia Protocol Sodium Chloride (Ns Inj) 1,000 mls @ 70 mls/hr IV.CONT .[id number] [facility] Last Admin: 03/08/18 06:22 Dose: 70 mls/hr Insulin Aspart (Novolog Insulin Correctional Sugar Inj) 0 unit SQ ACHS [facility]; Protocol Last Admin: 03/07/18 20:30 Dose: Not Given Sodium Chloride (Ns Flush) 2 ml IV.FLUSH BID [facility] Last Admin: 03/08/18 09:59 Dose: 2 ml Sodium Chloride (Ns Flush) 2 ml IV.FLUSH PRN PRN PRN Reason: FLUSH AFTER USING IV ACCESS Allergies/Adverse Reactions: Allergies Allergy/AdvReac Type Severity Reaction Status Date / Time No Known Allergies Allergy Verified 03/06/18 23:46 Physical Exam Vital signs: Vital Signs 03/07/18 10:54 03/07/18 11:57 03/07/18 18:43 Temperature 98.6 F 97.7 F 97.9 F Pulse Rate 86 64 61 Respiratory Rate 18 18 18 Blood Pressure 134/77 135/65 141/64 H Pulse Oximetry 96 96 99 03/07/18 20:54 03/08/18 00:00 03/08/18 04:00 Temperature 98.7 F 98.6 F 97.9 F Pulse Rate 75 72 73 Respiratory Rate 20 18 20 Blood Pressure 149/72 H 154/93 H 159/87 H Pulse Oximetry 99 96 98 03/08/18 08:55 Temperature 97.9 F Pulse Rate 75 Respiratory Rate 16 Blood Pressure 169/84 H Pulse Oximetry 95 Intake & Output 03/07/18 03/08/18 03/08/18 18:59 06:59 18:59 Intake Total 1000 / 1000 1000 / 1000 Output Total 725 / 725 250 / 250 Balance 275 / 275 750 / 750 Weight 84.5 kg Intake: IV 1000 / 1000 1000 / 1000 NS Inj 1,000 ML @ 70 mls/hr IV. 1000 / 1000 1000 / 1000 CONT .[id number] [facility] Rx#:[id number] Output: Urine 725 / 725 250 / 250 Narrative: awake speech strong moving all lungs clear alert - Urinary Catheter Management Indwelling Urethral Catheter Cath placed during this visit: yes, but has since been removed by the nurse Reason for continuing: Acute urinary retention Insertion date: 03/06/18 Insertion time: 23:59 Removal date: 03/07/18 Removal time: 18:55 Objective Laboratory Results - last 24 hr 03/07/18 03/07/18 03/07/18 12:45 17:07 20:25 WBC RBC Hgb Hct MCV MCH MCHC RDW Plt Count MPV Neut % (Auto) Lymph % (Auto) [place] % (Auto) Eos % (Auto) Baso % (Auto) Neut # (Auto) Lymph # (Auto) [place] # (Auto) Eos # (Auto) Baso # (Auto) WBC Differential Differential Comment Sodium Potassium Chloride Carbon Dioxide Anion Gap BUN Creatinine Estimated GFR POC Glucose 109 93 127 H Random Glucose Calcium Total Bilirubin AST ALT Alkaline Phosphatase Total Protein Albumin Triglycerides Cholesterol LDL Cholesterol, Calc HDL Cholesterol Cholesterol/HDL Ratio 03/08/18 03/08/18 07:59 07:59 WBC 8.9 RBC 3.93 L Hgb 13.1 Hct 37.7 L MCV 95.8 MCH 33.3 MCHC 34.8 RDW 13.0 Plt Count 146 L MPV 9.5 Neut % (Auto) 69.5 Lymph % (Auto) 18.2 [place] % (Auto) 7.7 Eos % (Auto) 4.3 H Baso % (Auto) 0.3 Neut # (Auto) 6.2 Lymph # (Auto) 1.6 [place] # (Auto) 0.7 Eos # (Auto) 0.4 Baso # (Auto) 0.0 WBC Differential . Differential Comment Auto diff final Sodium 142 Potassium 3.7 Chloride 111 H Carbon Dioxide 22.9 Anion Gap 8 BUN 22 H Creatinine 1.24 Estimated GFR 55 L POC Glucose Random Glucose 93 Calcium 7.9 L Total Bilirubin 1.7 H AST 18 ALT 19 Alkaline Phosphatase 50 Total Protein 6.6 Albumin 2.8 L Triglycerides 90 Cholesterol 154 LDL Cholesterol, Calc 90 HDL Cholesterol 45.6 Cholesterol/HDL Ratio 3.37 Review/Management - Review/Management Plan: imp one stndign bp with PT yest neg eeg nl on coumadin ok dc by me willsign off
[2018-03-08 10:39] LABS: Hemoglobin A1c 5.1 % (4.3-6.0)
--- NOTE | 2018-03-08 12:50 | P.PN ---
Subjective Interval history: awake and alert, mckeon removed yesterday - patient voiding no complains of headaches, nausea or vomitng or chest pains Physical Exam Vital signs: Vital Signs 03/07/18 18:43 03/07/18 20:54 03/08/18 00:00 Temperature 97.9 F 98.7 F 98.6 F Pulse Rate 61 75 72 Respiratory Rate 18 20 18 Blood Pressure 141/64 H 149/72 H 154/93 H Pulse Oximetry 99 99 96 03/08/18 04:00 03/08/18 08:55 Temperature 97.9 F 97.9 F Pulse Rate 73 75 Respiratory Rate 20 16 Blood Pressure 159/87 H 169/84 H Pulse Oximetry 98 95 Intake & Output 03/07/18 03/08/18 03/08/18 18:59 06:59 18:59 Intake Total 1000 / 1000 1000 / 1000 Output Total 725 / 725 250 / 250 Balance 275 / 275 750 / 750 Weight 84.5 kg Intake: IV 1000 / 1000 1000 / 1000 NS Inj 1,000 ML @ 70 mls/hr IV. 1000 / 1000 1000 / 1000 CONT .[id number] [facility] Rx#:[id number] Output: Urine 725 / 725 250 / 250 Narrative: awake and alert, oriented x 3,speech clear anicteric, pupils equal, EOM ful range of motion mild right facial asymmetry tongue midline good gag lungs- no rales regualar rhythm= paced abdomen soft, nontender extremties no edema no calf tendernss motor 0 5/5 on individual muscle testing - Urinary Catheter Management Indwelling Urethral Catheter Cath placed during this visit: yes, but has since been removed by the nurse Reason for continuing: Other continuation reason Insertion date: 03/06/18 Insertion time: 23:59 Removal date: 03/07/18 Removal time: 18:55 Results - Labs CBC & Chem 7: 03/08/18 07:59 03/08/18 07:59 Laboratory Results - last 24 hr 03/07/18 03/07/18 03/08/18 17:07 20:25 07:59 WBC 8.9 RBC 3.93 L Hgb 13.1 Hct 37.7 L MCV 95.8 MCH 33.3 MCHC 34.8 RDW 13.0 Plt Count 146 L MPV 9.5 Neut % (Auto) 69.5 Lymph % (Auto) 18.2 [place] % (Auto) 7.7 Eos % (Auto) 4.3 H Baso % (Auto) 0.3 Neut # (Auto) 6.2 Lymph # (Auto) 1.6 [place] # (Auto) 0.7 Eos # (Auto) 0.4 Baso # (Auto) 0.0 WBC Differential . Differential Comment Auto diff final Sodium Potassium Chloride Carbon Dioxide Anion Gap BUN Creatinine Estimated GFR POC Glucose 93 127 H Random Glucose Hemoglobin A1c Calcium Total Bilirubin AST ALT Alkaline Phosphatase Total Protein Albumin Triglycerides Cholesterol LDL Cholesterol, Calc HDL Cholesterol Cholesterol/HDL Ratio 03/08/18 03/08/18 03/08/18 07:59 07:59 12:18 WBC RBC Hgb Hct MCV MCH MCHC RDW Plt Count MPV Neut % (Auto) Lymph % (Auto) [place] % (Auto) Eos % (Auto) Baso % (Auto) Neut # (Auto) Lymph # (Auto) [place] # (Auto) Eos # (Auto) Baso # (Auto) WBC Differential Differential Comment Sodium 142 Potassium 3.7 Chloride 111 H Carbon Dioxide 22.9 Anion Gap 8 BUN 22 H Creatinine 1.24 Estimated GFR 55 L POC Glucose 117 H Random Glucose 93 Hemoglobin A1c 5.1 Calcium 7.9 L Total Bilirubin 1.7 H AST 18 ALT 19 Alkaline Phosphatase 50 Total Protein 6.6 Albumin 2.8 L Triglycerides 90 Cholesterol 154 LDL Cholesterol, Calc 90 HDL Cholesterol 45.6 Cholesterol/HDL Ratio 3.37 Assessment and Plan - Assessment (1) CVA (cerebral vascular accident) Code(s): I63.9 - Cerebral infarction, unspecified Status: Acute (2) Fall Code(s): W19.XXXA - Unspecified fall, initial encounter Status: Acute (3) Renal insufficiency Code(s): N28.9 - Disorder of kidney and ureter, unspecified Status: Acute - Plan 88 years old male right handed Possible vasovagal episode- neurologically intact 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 Salguero doubt stroke - CT Head w/ left thalamic infarct. - recommends starting OAC benefits outweighs risks- family agrees- (at one point was on coumadin but DC due to frequent fall ) - start him on Coumadin 5 mg daily - d/w - if any event or excess can be reversed with VIt K or FFP. Newer OAC - none MRI due to pacemaker. Will check Echo to eval for valvular abnormality/ cardiomyopathy. start diet . PT eval and treat- baseline uses a walker check orthostatics daily- negative 2d echo pending HYpertension restart on His coreg 3/125 mg po bid Acute KI Creatinine 1.65, no previous labs for comparison. U/a negative, improved. monitor off fluids. enourage po History of elevated PSA ff by Dr. Johnson at one point was on Flomax but was DC by Neurologist/and PCP - currently on Proscar- OP ff up with Dr. johnson for some reason mckeon was placed- DC 03/07- patient voiding History of hypothyroidism- continue on synthroid Speech therapy ff PT ff CM DC planning- SNF- [place] today or [place] if accepted Lovenox SQ for DVT prophylaxis
[2018-03-08 14:10] LABS: Prothrombin Time 10.6 sec (9.8-11.6)
--- NOTE | 2018-03-08 14:16 | ECG ---
Date Performed: 03/06/2018 Time Performed: 23:38:07 PTAGE: 88 years EKG: ELECTRONIC VENTRICULAR PACEMAKER ABNORMAL RHYTHM ECG NO PREVIOUS TRACING DOCTOR: Naren Chun Interpretating Date/Time 03/08/2018 14:10:35
[2018-03-08] MEDS: Insulin NovoLOG Aspart Correctional Sugar Inj SQ SCH ×4 (14:37→21:33)
--- NOTE | 2018-03-08 18:47 | ECHRPT ---
Indication: CVA CONCLUSIONS Normal left ventricular size. Wall thickness is normal. The left ventricular systolic function is mild to moderately reduced with an estimated ejection frac tion in the range of 40-45%. Slight global hypokinesis and possible akinesis of a small portion of the apex. Trace to mild mitral valve regurgitation. The aortic valve is not well visualized. Diffuse mild calcification of the aortic valve. Mild aortic valve sclerosis is present. Mild aortic valve regurgitation. There is mild tricuspid valve regurgitation. The estimated pulmonary arterial pressure is 45 mmHg. BP: / HR: Rhythm: MEASUREMENTS (Male / Female) Normal Values Technical Quality:Fair 2D ECHO LV Diastolic Diameter PLAX 5.8 cm 4.2 - 5.9 / 3.9 - 5.3 cm LV Systolic Diameter PLAX 5.3 cm IVS Diastolic Thickness 1.2 cm 0.6 - 1.0 / 0.6 - 0.9 cm LVPW Diastolic Thickness 1.2 cm 0.6 - 1.0 / 0.6 - 0.9 cm LV Relative Wall Thickness 0.4 RV Internal Dim ED PLAX 3.8 cm LVOT Diameter 2.1 cm LA Systolic Diameter LX 4.2 cm 3.0 - 4.0 / 2.7 - 3.8 cm M-MODE Aortic Root Diameter MM 3.7 cm LA Systolic Diameter MM 3.3 cm LA Ao Ratio MM 0.9 AV Cusp Separation MM 1.2 cm DOPPLER AV Peak Velocity 149.0 cm/s AV Peak Gradient 8.9 mmHg AI Peak Velocity 388.5 cm/s AI Peak Gradient 60.4 mmHg AI Pressure Half Time 323.5 ms LVOT Peak Velocity 91.3 cm/s LVOT Peak Gradient 3.3 mmHg AV Area Cont Eq pk 2.1 cm LV E' Lateral Velocity 8.2 cm/s LV E' Septal Velocity 4.3 cm/s TR Peak Velocity 319.0 cm/s TR Peak Gradient 40.7 mmHg Right Atrial Pressure 10.0 mmHg Pulmonary Artery Systolic Pressu 50.7 mmHg Right Ventricular Systolic Press 50.7 mmHg FINDINGS LEFT VENTRICLE Normal left ventricular size. Wall thickness is normal. The left ventricular systolic function is mild to moderately reduced with an estimated ejection frac tion in the range of 40-45%. Slight global hypokinesis and possible akinesis of a small portion of the apex. RIGHT VENTRICLE Normal right ventricular size and systolic function. LEFT ATRIUM The left atrial size is upper limits of normal. RIGHT ATRIUM The right atrial size is normal. ATRIAL SEPTUM Normal atrial septal thickness without atrial level shunting by limited color doppler interrogation. AORTA The aortic root and proximal ascending aorta are normal in size on limited imaging. MITRAL VALVE Trace to mild mitral valve regurgitation. AORTIC VALVE The aortic valve is not well visualized. Diffuse mild calcification of the aortic valve. Mild aortic valve sclerosis is present. Mild aortic valve regurgitation. TRICUSPID VALVE Structurally normal tricuspid valve. There is mild tricuspid valve regurgitation. The estimated pulmonary arterial pressure is 45 mmHg. PULMONARY VALVE Trivial pulmonary valve regurgitation. VESSELS The inferior vena cava is normal in size. PERICARDIUM No pericardial effusion. Saqib Ochoa MD (Electronically Signed) Final Date:08 March 2018 18:46
[2018-03-09] MEDS: Sod Chloride 0.9% Inj 1,000 ML IV.CONT SCH (04:25)
[2018-03-09 09:40] LABS: INR 1.1 Ratio; Prothrombin Time 11.4 sec (9.8-11.6)
[2018-03-09 09:48] VITALS: RESP 16
[2018-03-09] MEDS: Finasteride 5 MG Tablet PO SCH (10:03)
[2018-03-09] MEDS: Enoxaparin Inj 30 MG/0.3 ML Syringe SQ SCH (10:03)
[2018-03-09] MEDS: Insulin NovoLOG Aspart Correctional Sugar Inj SQ SCH ×2 (10:12→12:42)
--- NOTE | 2018-03-09 10:12 | P.PN ---
Subjective Interval history: no complains of ehadahces, nausea or vomiting no pain no weakness Physical Exam Vital signs: Vital Signs 03/08/18 12:51 03/08/18 17:17 03/08/18 20:00 Temperature 97.7 F 98 F 98 F Pulse Rate 71 77 66 Respiratory Rate 16 16 18 Blood Pressure 156/75 H 151/76 H 145/69 H Pulse Oximetry 96 95 97 03/09/18 00:00 03/09/18 04:00 03/09/18 09:46 Temperature 98.1 F 97.3 F L 98.7 F Pulse Rate 80 79 88 Respiratory Rate 18 18 16 Blood Pressure 161/87 H 160/85 H 151/52 H Pulse Oximetry 92 L 93 L 90 L Intake & Output 03/08/18 03/09/18 03/09/18 18:59 06:59 18:59 Intake Total 1560 / 1560 Output Total 400 / 400 Balance 1560 / 1560 -400 / -400 Weight 84.2 kg Intake: IV 420 / 420 NS Inj 1,000 ML @ 50 mls/hr IV. 420 / 420 CONT .Q20H [facility] Rx#:[id number] Oral 720 / 720 Other 420 / 420 Output: Urine 400 / 400 Other: Other Intake Source Saline Solution Date of Last Bowel Movement 03/07/18 03/07/18 Narrative: awake and alert, oriented x 3,speech clear anicteric, pupils equal, EOM ful range of motion mild right facial asymmetry tongue midline good gag lungs- no rales regualar rhythm= paced abdomen soft, nontender extremties no edema no calf tendernss motor 0 5/5 on individual muscle testing - Urinary Catheter Management Indwelling Urethral Catheter Cath placed during this visit: yes, but has since been removed by the nurse Reason for continuing: Other continuation reason Insertion date: 03/06/18 Insertion time: 23:59 Removal date: 03/07/18 Removal time: 18:55 Results - Labs CBC & Chem 7: 03/08/18 07:59 03/08/18 07:59 Laboratory Results - last 24 hr 03/08/18 03/08/18 03/08/18 07:59 12:18 12:57 PT 10.6 INR 1.0 POC Glucose 117 H Hemoglobin A1c 5.1 07/28/18 07/28/18 07/29/18 18:38 19:41 07:25 PT 11.4 INR 1.1 POC Glucose 128 H 110 Hemoglobin A1c Assessment and Plan - Assessment (1) CVA (cerebral vascular accident) Code(s): I63.9 - Cerebral infarction, unspecified Status: Acute (2) Fall Code(s): W19.XXXA - Unspecified fall, initial encounter Status: Acute (3) Renal insufficiency Code(s): N28.9 - Disorder of kidney and ureter, unspecified Status: Acute - Plan 88 years old male right handed Possible vasovagal episode- neurologically intact 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 Salguero doubt stroke - CT Head w/ left thalamic infarct. - recommends starting OAC benefits outweighs risks- family agrees- (at one point was on coumadin but DC due to frequent fall ) - start him on Coumadin 5 mg daily. FF INR in SNF- goal 2-3 03/08 - d/w - if any event or excess can be reversed with VIt K or FFP. Newer OAC - no reversal agents MRI due to pacemaker. start diet . PT eval and treat- baseline uses a walker check orthostatics daily- negative HYpertension Cardiomyopathy- EF 45%- not in clinical failure increase Coreg to 6.25 mg po b id Acute KI Creatinine 1.65, no previous labs for comparison. U/a negative, improved. monitor off fluids. enourage po History of elevated PSA ff by Dr. Johnson at one point was on Flomax but was DC by Neurologist/and PCP - currently on Proscar- OP ff up with Dr. johnson for some reason mckeon was placed- DC 03/07- patient voiding History fo Hypothyroidism-d/w - restart on his synthroid 50 mcg daily. check TSH as OP PT ff CM DC planning- [facility] if accepted Lovenox SQ for DVT prophylaxis Hear healthy diet activity as toelrated with PT meds- as above
[2018-03-09] MEDS ORDERED: Levothyroxine 50 MCG Tablet PO ONE (12:15)
[2018-03-09 12:51] VITALS: BP 149/82; PULSE 67; TEMP 97.3; O2SAT 97
[2018-03-10] MEDS ORDERED: Levothyroxine 50 MCG Tablet PO SCH (06:00)
== END 2018-03-09 14:51 ==
LOC: NEPC 23:31 → NEDA 03-07 02:28 → N05 03-07 04:18
PROVIDERS: ADMIT Internal Medicine; ATTEND Internal Medicine

== ENCOUNTER 2018-10-06 20:56 | Inpatient (IN) ==
--- NOTE | 2018-10-06 21:10 | ED ---
HPI General Chief Complaint: Fall Stated Complaint: fall/ Time Seen by Provider: 10/06/18 21:01 History of Present Illness HPI Narrative: Patient is a 88-year-old man who lives with his who is bedside with daughter , Pt has recnetly been made a hopsice pt and has a visiting hospice nurse ....apparently tonight about an hour prior to the call he fell , getting up from bed .. he has a crown laceration about 6 cm , and 2 small superficial forehead lacerations which is beveled about 4 cm and then a smaller over the right eyebrow laceration. His main complaint is that he is got left shoulder pain which he says started since the fall. Otherwise he has no obvious injury, there is no obvious bruise to his back or his neck just lacerations to his head he apparently has a prior injury with a head bleed which is why he is on hospice he has baseline dementia and partially at slightly confused in his history presentation Related Data Home Medications Medication Instructions Recorded Confirmed D3-E-Se-soy orgim-proedn-mdmif 1,200 unit PO DAILY 03/07/18 10/06/18 [Prostate 2.4] acetaminophen 325 mg PO Q4-6H PRN 03/07/18 10/06/18 calcium carbonate [Calcium 500] 1 mg PO DAILY 03/07/18 10/06/18 carvedilol 3.125 mg PO BID 03/07/18 10/06/18 finasteride 5 mg PO DAILY 03/07/18 10/06/18 gabapentin 300 mg PO TID 03/07/18 10/06/18 levothyroxine 50 mcg PO DAILY 03/07/18 10/06/18 meclizine 25 mg PO BID 03/07/18 10/06/18 multivitamin 1 cap PO DAILY 03/07/18 10/06/18 pantoprazole 40 mg PO DAILY 03/07/18 10/06/18 sertraline 25 mg PO DAILY 03/07/18 10/06/18 simvastatin 80 mg PO QPM 03/07/18 10/06/18 vitamin B complex 1 tab PO DAILY 03/07/18 10/06/18 Previous Rx's Medication Instructions Recorded aspirin 81 mg PO DAILY #30 tab 10/07/18 levofloxacin 750 mg PO DAILY 7 Days #7 tab 02/26/19 Allergies Allergy/AdvReac Type Severity Reaction Status Date / Time No Known Allergies Allergy Verified 03/06/18 23:46 [facility] Medical History Medical History Alzheimer disease (Acute) CVA (cerebral vascular accident) (Acute) History of hypothyroidism (Acute) Surgical history unknown (Acute) Surgical History Surgical History History of hip surgery (Acute) Social History Social History Substance History: No History of Abuse Second Hand Smoke Exposure: No Smoking Status: Former smoker Tobacco Type: Cigarettes How Often Do You Have a Drink Containing Alcohol: Never Recent Travel in [facility] within the Last 8 Weeks: No Recent Out of Country Travel within the Last 8 Weeks: No Procedures Laceration Laceration 1: Site: scalp Side (If applicable): left Size (cm): 7 Description: linear and irregular Depth: simple, single layer Anesthetic used: lidocaine 2% Anesthesia technique:: local infiltration Amount (mL): 3 Pre-repair:: wound explored Skin layer closed with: prasanth (10) Technique:: simple interrupted Course Initial Documented Vital Signs Temperature 97.6 F 10/06/18 20:59 Pulse Rate 98 H 10/06/18 20:59 Respiratory Rate 18 10/06/18 20:59 Blood Pressure 139/81 10/06/18 20:59 Pulse Oximetry 97 10/06/18 20:59 Last Documented Vital Signs Temperature 96.5 F L 10/07/18 12:00 Pulse Rate 108 H 10/07/18 12:00 Respiratory Rate 24 10/07/18 12:00 Blood Pressure 151/85 H 10/07/18 12:00 Pulse Oximetry 95 10/07/18 15:15 Medical Decision Making Lab Data Result diagrams: 10/07/18 05:35 10/07/18 05:35 Lab Results 10/06/18 10/06/18 10/06/18 Range/Units 21:15 21:15 21:15 CBC w Diff Auto diff final WBC 8.9 (4.0-11.0) th/mm3 RBC 4.33 L (4.50-5.90) mil/mm3 Hgb 14.0 (13.0-17.0) gm/dL Hct 41.4 (39.0-51.0) % MCV 95.7 (80.0-100.0) fL MCH 32.5 (27.0-34.0) pg MCHC 33.9 (32.0-36.0) % RDW 13.2 (11.6-17.2) % Plt Count 232 (150-450) th/mm3 MPV 9.5 (7.0-11.0) fL Neut % (Auto) 75.0 H (16.0-70.0) % Lymph % (Auto) 14.4 (9.0-44.0) % [place] % (Auto) 6.9 (0.0-8.0) % Eos % (Auto) 3.3 (0.0-4.0) % Baso % (Auto) 0.4 (0.0-2.0) % Neut # (Auto) 6.8 (1.8-7.7) th/mm3 Lymph # (Auto) 1.3 (1.0-4.8) th/mm3 [place] # (Auto) 0.6 (0.0-0.9) th/mm3 Eos # (Auto) 0.3 (0.0-0.4) th/mm3 Baso # (Auto) 0.0 (0.0-0.2) th/mm3 WBC Differential . Differential Comment . Sodium 140 (136-145) meq/L Potassium 4.3 (3.5-5.1) meq/L Chloride 108 H (98-107) meq/L Carbon Dioxide 25.0 (21.0-32.0) meq/L Anion Gap 7 (5-15) meq/L BUN 27 H (7-18) mg/dL Creatinine 1.30 (0.60-1.30) mg/dL Estimated GFR 52 L (>89) mL/min Random Glucose 121 H (74-106) mg/dL Calcium 8.3 L (8.5-10.1) mg/dL Total Bilirubin 0.8 (0.2-1.0) mg/dL AST 26 (15-37) U/L ALT 24 (12-78) U/L Alkaline Phosphatase 73 (45-117) U/L Total Creatine Kinase 109 (39-308) U/L Troponin I 0.04 (0.02-0.05) ng/mL Total Protein 6.9 (6.4-8.2) g/dL Albumin 2.9 L (3.4-5.0) g/dL Urine Color (Yellw/Straw) Urine Clarity (Clear) Urine pH (5.0-8.5) Ur Specific [place] (1.002-1.035) Urine Protein (Neg-Trace) mg/dL Urine Glucose (UA) (Negative) mg/dL Urine Ketones (Negative) mg/dL Urine Occult Blood (Negative) Urine Nitrate (Negative) Urine Bilirubin (Negative) Urine Urobilinogen (Less than 2) mg/dL Ur Leukocyte Esterase (Negative) Urine RBC (0-3) /hpf Urine WBC (0-5) /hpf Urine WBC Clumps (None) Ur Squamous Epith Cells (0-5) /hpf Calcium Oxalate Crystal (None) /hpf Urine Bacteria (None) /hpf Urine Mucus (Occasional) /lpf Micro UA Comment Ur Microscopic Review 10/06/18 10/07/18 10/07/18 Range/Units 21:30 05:35 05:35 CBC w Diff Auto diff final WBC 8.8 (4.0-11.0) th/mm3 RBC 4.40 L (4.50-5.90) mil/mm3 Hgb 13.8 (13.0-17.0) gm/dL Hct 42.2 (39.0-51.0) % MCV 95.7 (80.0-100.0) fL MCH 31.3 (27.0-34.0) pg MCHC 32.7 (32.0-36.0) % RDW 13.1 (11.6-17.2) % Plt Count 215 (150-450) th/mm3 MPV 9.9 (7.0-11.0) fL Neut % (Auto) 75.7 H (16.0-70.0) % Lymph % (Auto) 14.2 (9.0-44.0) % [place] % (Auto) 9.1 H (0.0-8.0) % Eos % (Auto) 0.7 (0.0-4.0) % Baso % (Auto) 0.3 (0.0-2.0) % Neut # (Auto) 6.6 (1.8-7.7) th/mm3 Lymph # (Auto) 1.3 (1.0-4.8) th/mm3 [place] # (Auto) 0.8 (0.0-0.9) th/mm3 Eos # (Auto) 0.1 (0.0-0.4) th/mm3 Baso # (Auto) 0.0 (0.0-0.2) th/mm3 WBC Differential . Differential Comment . Sodium 142 (136-145) meq/L Potassium 4.0 (3.5-5.1) meq/L Chloride 107 (98-107) meq/L Carbon Dioxide 27.1 (21.0-32.0) meq/L Anion Gap 8 (5-15) meq/L BUN 25 H (7-18) mg/dL Creatinine 1.20 (0.60-1.30) mg/dL Estimated GFR 57 L (>89) mL/min Random Glucose 99 (74-106) mg/dL Calcium 8.7 (8.5-10.1) mg/dL Total Bilirubin 1.2 H (0.2-1.0) mg/dL AST 25 (15-37) U/L ALT 21 (12-78) U/L Alkaline Phosphatase 63 (45-117) U/L Total Creatine Kinase (39-308) U/L Troponin I (0.02-0.05) ng/mL Total Protein 6.7 (6.4-8.2) g/dL Albumin 2.8 L (3.4-5.0) g/dL Urine Color Yellow (Yellw/Straw) Urine Clarity Slightly cloudy (Clear) Urine pH 6.5 (5.0-8.5) Ur Specific [place] 1.020 (1.002-1.035) Urine Protein Trace (Neg-Trace) mg/dL Urine Glucose (UA) Negative (Negative) mg/dL Urine Ketones Trace H (Negative) mg/dL Urine Occult Blood Negative (Negative) Urine Nitrate Positive H (Negative) Urine Bilirubin Negative (Negative) Urine Urobilinogen 1.0 (Less than 2) mg/dL Ur Leukocyte Esterase Small H (Negative) Urine RBC 0-3 (0-3) /hpf Urine WBC 9-20 H (0-5) /hpf Urine WBC Clumps Few H (None) Ur Squamous Epith Cells 0-5 (0-5) /hpf Calcium Oxalate Crystal Few H (None) /hpf Urine Bacteria Many H (None) /hpf Urine Mucus Few H (Occasional) /lpf Micro UA Comment Culture indicated Ur Microscopic Review Microscopic reviewed Imaging Data Radiologist's impression: Cervical Spine CT 10/06/18 21:01 CONCLUSION: 1. Acute mildly displaced fracture involving the left facet of C6 and right lamina at the C6 level also. There is also an acute fracture involving the left superior articulating facet of C7. 2. Reversal of the normal cervical lordosis. There is 3. Grade I anterolisthesis of C5 in relation to C4, C6 in relation to C5, and C7 in relation to T1. 4. Severe bilateral foraminal narrowing is noted at C3-4, C4-5, C5-6, and C6- 7. Severe left neuroforaminal narrowing is noted at C2-3. 5. Moderate spinal stenosis is noted at C4-C5 and C5-6. 6. Pleural effusions are noted bilaterally within the apices of the lungs. Head CT 10/06/18 21:01 CONCLUSION: 1. Diffuse cerebral atrophy is noted. 2. Old lacunar infarct is noted within the left thalamus. 3. Old infarcts involving the bilateral cerebellar hemispheres are also again noted. 4. Mild periventricular and subcortical white matter small vessel ischemic changes are noted bilaterally. 5. Stable right high parietal subcortical white matter encephalomalacia is also again noted. 6. No acute infarct, acute hemorrhage, midline shift or extra-axial fluid collections are noted. . . Discharge Plan Discharge Disposition Patient Disposition: ED Admit(ED Internal Use Only) Discharge Order Discharge Orders: Discharge Order (Routine); Ordered 10/07/18 Ordered By: Rudi Mcnamara ED Use Only Admit Order (Routine); Ordered 10/06/18 Ordered By: Nelson Tubbs Physicians Team ED Provider: Nelson Tubbs Primary Care Provider: UNKNOWN, Attending Provider: Rudi Mcnamara Other Providers: [employer] Status ED Status: Left Department Discharge Information Discharge Date/Time: 10/07/18 00:30
[2018-10-06] MEDS ORDERED: Diphtheria/Tetanus/Pertussis Vaccine Inj 0.5 ML Syringe IM ONE (21:13)
[2018-10-06 21:27] LABS: Baso % (Auto) 0.4 % (0.0-2.0); Eos # (Auto) 0.3 th/mm3 (0.0-0.4); Eos % (Auto) 3.3 % (0.0-4.0); Hematocrit 41.4 % (39.0-51.0); Lymph # (Auto) 1.3 th/mm3 (1.0-4.8); Lymph % (Auto) 14.4 % (9.0-44.0); Mean Corpuscular HGB Conc 33.9 % (32.0-36.0); Mean Corpuscular Hemoglobin 32.5 pg (27.0-34.0); Mean Corpuscular Volume 95.7 fL (80.0-100.0); Mean Platelet Volume 9.5 fL (7.0-11.0); Mono # (Auto) 0.6 th/mm3 (0.0-0.9); Mono % (Auto) 6.9 % (0.0-8.0); Neut # (Auto) 6.8 th/mm3 (1.8-7.7); Platelet Count 232 th/mm3 (150-450); Red Blood Count 4.33 mil/mm3 (4.50-5.90); Red Cell Distribution Width 13.2 % (11.6-17.2); White Blood Count 8.9 th/mm3 (4.0-11.0)
[2018-10-06 21:34] LABS: Chloride 108 meq/L (98-107); Potassium 4.3 meq/L (3.5-5.1); Sodium 140 meq/L (136-145)
[2018-10-06 21:38] LABS: Albumin 2.9 g/dL (3.4-5.0); Anion Gap 7 meq/L (5-15); Calcium 8.3 mg/dL (8.5-10.1); Glucose,Random 121 mg/dL (74-106)
[2018-10-06 21:39] LABS: Blood Urea Nitrogen 27 mg/dL (7-18)
[2018-10-06 21:42] LABS: Alanine Aminotransferase 24 U/L (12-78); Aspartate Aminotransferase 26 U/L (15-37); Glomerular Filtration Rate 52 mL/min (>89)
[2018-10-06 21:43] LABS: Total Protein 6.9 g/dL (6.4-8.2)
[2018-10-06 21:44] LABS: Alkaline Phosphatase 73 U/L (45-117)
[2018-10-06 21:45] LABS: Bilirubin,Urine Negative (Negative); Clarity,Urine Slightly Cloudy (Clear); Color,Urine Yellow (Yellw/Straw); Glucose,Urine (UA) Negative (Negative); Leukocyte Esterase,Urine Small (Negative); Nitrite,Urine Positive (Negative); PH,Urine 6.5 (5.0-8.5)
[2018-10-06 21:46] LABS: Troponin I 0.04 ng/mL (0.02-0.05)
--- NOTE | 2018-10-06 21:46 | CT ---
EXAM DATE: 10/06/2018 9:40 PM EST AGE/SEX: 88 years / Male INDICATIONS: Trauma, fall. Laceration to forehead. CLINICAL DATA: This is the patient's initial encounter. Patient reports that signs and symptoms have been present for 1 day and indicates a pain score of 6/10. MEDICAL/SURGICAL HISTORY: Cerebrovascular disease. Renal insufficiency. None. RADIATION DOSE: 57.38 CTDI (mGy) COMPARISON: [facility] – [place], CT HEAD W/O CONTRAST, 03/07/2018. . TECHNIQUE: CT of the head without contrast. Using automated exposure control and adjustment of the mA and/or kV according to patient size, radiation dose was kept as low as reasonably achievable to ob tain optimal diagnostic quality images. DICOM format image data is available electronically for revi ew and comparison. FINDINGS: Diffuse cerebral atrophy is noted. Old lacunar infarct is noted within the left thalamus. Old infarct s involving the bilateral cerebellar hemispheres are also again noted. Mild periventricular and subco rtical white matter small vessel ischemic changes are noted bilaterally. Stable right high parietal s ubcortical white matter encephalomalacia is also again noted. No acute infarct, acute hemorrhage, mid line shift or extra-axial fluid collections are noted. The bone windows are unremarkable. CONCLUSION: 1. Diffuse cerebral atrophy is noted. 2. Old lacunar infarct is noted within the left thalamus. 3. Old infarcts involving the bilateral cerebellar hemispheres are also again noted. 4. Mild periventricular and subcortical white matter small vessel ischemic changes are noted bilater ally. 5. Stable right high parietal subcortical white matter encephalomalacia is also again noted. 6. No acute infarct, acute hemorrhage, midline shift or extra-axial fluid collections are noted. . . Electronically signed by: Jayant Ardon MD Board Certified Radiologist 10/06/2018 9:44 PM EST
[2018-10-06 21:52] LABS: RBC,Urine 0-3 /hpf (0-3)
[2018-10-06 21:53] LABS: Bacteria,Urine Many /hpf; Mucus,Urine Few /lpf (Occasional); Squamous Epithelial Cell,Urine 0-5 /hpf (0-5)
[2018-10-06 21:54] LABS: Calcium Oxalate Crystals,Urine Few /hpf
--- NOTE | 2018-10-06 22:06 | CT ---
EXAM DATE: 10/06/2018 9:54 PM EST AGE/SEX: 88 years / Male INDICATIONS: Trauma, fall. Laceration to forehead. CLINICAL DATA: This is the patient's initial encounter. Patient reports that signs and symptoms have been present for 1 day and indicates a pain score of 0/10. MEDICAL/SURGICAL HISTORY: Cerebrovascular disease. Renal insufficiency. None. RADIATION DOSE: 28.17 CTDI (mGy) COMPARISON: [facility] [place] CERVICAL SPINE W/O CONTRAST, 03/07/2018. . TECHNIQUE: Contiguous axial images were obtained using helical multirow detector technique. The vol umetric data was post-processed with multiplanar reconstruction in oblique axial, sagittal, and coron al planes. Using automated exposure control and adjustment of the mA and/or kV according to patient s ize, radiation dose was kept as low as reasonably achievable to obtain optimal diagnostic quality purvi ges. DICOM format image data is available electronically for review and comparison. FINDINGS: There is evidence of acute mildly displaced fracture involving the left facet of C6 and right lamina at the C6 level also. There is also an acute fracture involving the left superior articulating facet of C7. There is reversal of the normal cervical lordosis. There is grade I anterolisthesis of C5 in r elation to C4, C6 in relation to C5, and C7 in relation to T1. Severe bilateral foraminal narrowing i s noted at C3-4, C4-5, C5-6, and C6-7. Severe left neuroforaminal narrowing is noted at C2-3. There i s no prevertebral soft tissue swelling. The bony relationship and alignment between C1 and C2 is well maintained. Moderate spinal stenosis is noted at C4-C5 and C5-6. Pleural effusions are noted bilater ally within the apices of the lungs. CONCLUSION: 1. Acute mildly displaced fracture involving the left facet of C6 and right lamina at the C6 level a lso. There is also an acute fracture involving the left superior articulating facet of C7. 2. Reversal of the normal cervical lordosis. There is 3. Grade I anterolisthesis of C5 in relation to C4, C6 in relation to C5, and C7 in relation to T1. 4. Severe bilateral foraminal narrowing is noted at C3-4, C4-5, C5-6, and C6-7. Severe left neurofor aminal narrowing is noted at C2-3. 5. Moderate spinal stenosis is noted at C4-C5 and C5-6. 6. Pleural effusions are noted bilaterally within the apices of the lungs. Electronically signed by: Jayant Ardon MD Board Certified Radiologist 10/06/2018 10:05 PM EST
[2018-10-06] MEDS ORDERED: Lidocaine 2%/Epinephrine 1:100,000 Inj 20 ML Vial NERV BLOCK ONE (22:38)
[2018-10-06] MEDS ORDERED: Lidocaine 1%/Epinephrine 1:100,000 Inj 50 ML Vial ONE (22:41)
[2018-10-06] MEDS ORDERED: Acetaminophen 325 MG Tablet PO PRN (23:38)
[2018-10-06] MEDS ORDERED: Bisacodyl 10 MG Supp RECTAL PRN (23:38)
[2018-10-07 06:14] LABS: Baso % (Auto) 0.3 % (0.0-2.0); Eos # (Auto) 0.1 th/mm3 (0.0-0.4); Eos % (Auto) 0.7 % (0.0-4.0); Hematocrit 42.2 % (39.0-51.0); Hemoglobin 13.8 gm/dL (13.0-17.0); Lymph # (Auto) 1.3 th/mm3 (1.0-4.8); Lymph % (Auto) 14.2 % (9.0-44.0); Mean Corpuscular HGB Conc 32.7 % (32.0-36.0); Mean Corpuscular Hemoglobin 31.3 pg (27.0-34.0); Mean Corpuscular Volume 95.7 fL (80.0-100.0); Mean Platelet Volume 9.9 fL (7.0-11.0); Mono # (Auto) 0.8 th/mm3 (0.0-0.9); Mono % (Auto) 9.1 % (0.0-8.0); Neut # (Auto) 6.6 th/mm3 (1.8-7.7); Neut % (Auto) 75.7 % (16.0-70.0); Platelet Count 215 th/mm3 (150-450); Red Cell Distribution Width 13.1 % (11.6-17.2); White Blood Count 8.8 th/mm3 (4.0-11.0)
[2018-10-07 06:22] LABS: Chloride 107 meq/L (98-107); Sodium 142 meq/L (136-145)
[2018-10-07 06:27] LABS: Albumin 2.8 g/dL (3.4-5.0); Calcium 8.7 mg/dL (8.5-10.1)
[2018-10-07 06:28] LABS: Anion Gap 8 meq/L (5-15); Blood Urea Nitrogen 25 mg/dL (7-18); Carbon Dioxide 27.1 meq/L (21.0-32.0); Glucose,Random 99 mg/dL (74-106)
[2018-10-07 06:30] LABS: Alanine Aminotransferase 21 U/L (12-78)
[2018-10-07 06:31] LABS: Aspartate Aminotransferase 25 U/L (15-37); Glomerular Filtration Rate 57 mL/min (>89)
[2018-10-07 06:32] LABS: Total Protein 6.7 g/dL (6.4-8.2)
[2018-10-07 06:33] LABS: Alkaline Phosphatase 63 U/L (45-117)
--- NOTE | 2018-10-07 10:11 | P.HPIM ---
History of Present Illness Primary Care Physician: UNKNOWN History of Present Illness: 88-year-old white male being admitted for a cervical spine fracture. Patient was in his [facility] until sometime yesterday when he had an unwitnessed fall from the bed to the tile floor, striking his head. is the main historian, found him in a pool of blood with a laceration on his scalp, patient was complaining of pain in his head neck and shoulders. Was brought to the ED via ambulance. No intracranial hemorrhage was noted on plain films, had a scalp laceration sutured. C-spine did show a mildly displaced left facet C6 fracture as well as a left superior facet C7 fracture. Was placed in a cervical collar. Blood work was unrevealing, had a suspicious looking UA. Patient was recently placed on hospice for protein malnutrition. Has a history of a left cerebellar stroke. . Diagnosis (1) History of hip surgery: Inpatient Certification Inpatient Certification: I certify that the inpatient services were ordered in accordance with Medicare regulations governing the order. This includes certification that hospital inpatient services are reasonable and necessary and in the case of services not specified as inpatient-only under 42 CFR 419.22(n), that they are appropriately provided as inpatient services in accordance to with the 2-midnight benchmark under 43 CFR 412.3(e) Estimated Total Length of Stay (Days): 2 Plans for Post Hospital Care: Home Review of Systems Review of Systems: all other systems reviewed are negative [facility] Medical History Medical History Alzheimer disease (Acute) CVA (cerebral vascular accident) (Acute) History of hypothyroidism (Acute) Surgical history unknown (Acute) Surgical History Surgical History History of hip surgery (Acute) Social History Social History Substance History: No History of Abuse Second Hand Smoke Exposure: No Smoking Status: Former smoker Tobacco Type: Cigarettes How Often Do You Have a Drink Containing Alcohol: Never Recent Travel in [facility] within the Last 8 Weeks: No Recent Out of Country Travel within the Last 8 Weeks: No Immunization History Tetanus Immunization: Unsure Hx Influenza Vaccine This Season: Yes Medications and Allergies Allergies Allergy/AdvReac Type Severity Reaction Status Date / Time No Known Allergies Allergy Verified 03/06/18 23:46 Home Medications Medication Instructions Recorded Confirmed Type D3-[id number]-soy witid-bnnylf-owghr 1,200 unit PO DAILY 03/07/18 10/06/18 History [Prostate 2.4] acetaminophen 325 mg PO Q4-6H PRN 03/07/18 10/06/18 History calcium carbonate [Calcium 500] 1 mg PO DAILY 03/07/18 10/06/18 History carvedilol 3.125 mg PO BID 03/07/18 10/06/18 History finasteride 5 mg PO DAILY 03/07/18 10/06/18 History gabapentin 300 mg PO TID 03/07/18 10/06/18 History levothyroxine 50 mcg PO DAILY 03/07/18 10/06/18 History meclizine 25 mg PO BID 03/07/18 10/06/18 History multivitamin 1 cap PO DAILY 03/07/18 10/06/18 History pantoprazole 40 mg PO DAILY 03/07/18 10/06/18 History sertraline 25 mg PO DAILY 03/07/18 10/06/18 History simvastatin 80 mg PO QPM 03/07/18 10/06/18 History vitamin B complex 1 tab PO DAILY 03/07/18 10/06/18 History Active Medications: Active Medications Acetaminophen (Tylenol) 650 mg PO Q4H PRN PRN Reason: Temp > 100.4 Hydrocodone Bitart/Acetaminophen (Mcdougal 5/325) 1 tab PO Q6H PRN PRN Reason: PAIN SCALE 1 TO 5 Al Hydroxide/Mg Hydroxide (Milk Of Magnesia Liq) 30 ml PO Q12H PRN PRN Reason: Mild Constipation Last Admin: 10/07/18 09:47 Dose: 30 ml Bisacodyl (Dulcolax Supp) 10 mg RECTAL DAILY PRN PRN Reason: SEVERE CONSITIPATION Lactulose (Lactulose Liq) 30 ml PO DAILY PRN PRN Reason: SEVERE CONSITIPATION Levofloxacin (Levaquin) 750 mg PO Q48H NITO Ondansetron HCl (Zofran Inj) 4 mg IV.PUSH Q6H PRN PRN Reason: NAUSEA OR VOMITING Sennosides (Senokot) 17.2 mg PO Q12H PRN PRN Reason: Moderate Constipation Sodium Chloride (Ns Flush) 2 ml IV.FLUSH BID NITO Last Admin: 10/07/18 09:47 Dose: 2 ml Sodium Chloride (Ns Flush) 2 ml IV.FLUSH PRN PRN PRN Reason: FLUSH AFTER USING IV ACCESS Last Admin: 10/07/18 01:10 Dose: 2 ml Physical Exam Vital signs: Vital Signs 10/06/18 20:59 10/06/18 23:19 10/07/18 00:00 Temperature 97.6 F 97.4 F L Pulse Rate 98 H 100 H 96 H Respiratory Rate 18 18 18 Blood Pressure 139/81 140/83 143/80 H Pulse Oximetry 97 99 94 L 10/07/18 08:00 Temperature 97.8 F Pulse Rate 110 H Respiratory Rate 20 Blood Pressure 154/95 H Pulse Oximetry 91 L Intake & Output 10/06/18 10/07/18 10/07/18 18:59 06:59 18:59 Intake Total 150 / 150 Output Total 650 / 650 Balance -500 / -500 Weight 75 kg Intake: IV 150 / 150 Levaquin 750 mg Premix Inj 150 150 / 150 ML @ 100 mls/hr IV.SIG ONCE ONE Rx#:[id number] Output: Urine 450 / 450 Urine Amount (Catheter) 200 / 200 Indwelling Urethral Catheter 200 / 200 Other: Date of Last Bowel Movement 10/05/18 Weight On Admission 75 kg Narrative: VS: afebrile GENERAL: Alert and, awake, no acute distress, cooperative and interactive SKIN: Warm and dry. EYES: Pupils equal and round. No scleral icterus. No injection or drainage. Extraocular motions intact. ENT: No nasal bleeding or discharge. Mucous membranes pink and moist. Sutured scalp laceration superiorly/occiput CARDIOVASCULAR: Regular rate and rhythm. no murmurs RESPIRATORY: No accessory muscle use. Clear to auscultation. Breath sounds equal bilaterally. GASTROINTESTINAL: Abdomen soft, non-tender, nondistended. Mild suprapubic tenderness to palpation Extremities: No clubbing, cyanosis, or edema. No obvious deformities. MUSCULOSKELETAL: grossly intact ROM with 5/5 strength in upper and lower extremities proximally including fist propagator and proximal hip flexor strength bilaterally, intact dorsiflexion and plantar flexion bilaterally; adequate muscle bulk and tone for age and habitus NEUROLOGICAL: Awake and alert. No obvious cranial nerve deficits. No facial droop nor slurred speech noted. Diminished patellar reflexes bilaterally PSYCHIATRIC: Appropriate mood and affect; insight and judgment normal. Urinary Catheter Management Indwelling Urethral Catheter: Cath placed during this visit: yes Reason for continuing: Hourly intake/output Insertion date: 10/07/18 Insertion time: 23:20 Results Labs CBC & Chem 7: 10/07/18 05:35 10/07/18 05:35 Imaging Impressions Cervical Spine CT 10/06/18 21:01 CONCLUSION: 1. Acute mildly displaced fracture involving the left facet of C6 and right lamina at the C6 level also. There is also an acute fracture involving the left superior articulating facet of C7. 2. Reversal of the normal cervical lordosis. There is 3. Grade I anterolisthesis of C5 in relation to C4, C6 in relation to C5, and C7 in relation to T1. 4. Severe bilateral foraminal narrowing is noted at C3-4, C4-5, C5-6, and C6- 7. Severe left neuroforaminal narrowing is noted at C2-3. 5. Moderate spinal stenosis is noted at C4-C5 and C5-6. 6. Pleural effusions are noted bilaterally within the apices of the lungs. Head CT 10/06/18 21:01 CONCLUSION: 1. Diffuse cerebral atrophy is noted. 2. Old lacunar infarct is noted within the left thalamus. 3. Old infarcts involving the bilateral cerebellar hemispheres are also again noted. 4. Mild periventricular and subcortical white matter small vessel ischemic changes are noted bilaterally. 5. Stable right high parietal subcortical white matter encephalomalacia is also again noted. 6. No acute infarct, acute hemorrhage, midline shift or extra-axial fluid collections are noted. . . Caprini VTE Risk Assessment Caprini VTE Risk Assessment: Moderate/High Risk (score >= 2) VTE Pharmacological Exception Reason: High risk for bleeding Caprini Risk Assessment Model: Point Value = 1 Point Value = 2 Point Value = 3 Point Value = 5 Age 41-60 Minor surgery BMI > 25 kg/m2 Swollen legs Varicose veins or History of unexplained or recurrent spontaneous Oral contraceptives or hormone replacement Sepsis (< 1 month) Serious lung disease, including pneumonia (< 1 month) Abnormal pulmonary function Acute myocardial infarction Congestive heart failure (< 1 month) History of inflammatory bowel disease Medical patient at bed rest Age 61-74 Arthroscopic surgery Major open surgery (> 45 min) Laparoscopic surgery (> 45 min) Malignancy Confined to bed (> 72 hours) Immobilizing plaster cast Central venous access Age >= 75 History of VTE Family history of VTE Factor V Leiden Prothrombin [id number] Lupus anticoagulant Anticardiolipin antibodies Elevated serum homocysteine Heparin-induced thrombocytopenia Other congenital or acquired thrombophilia Stroke (< 1 month) Elective arthroplasty Hip, pelvis, or leg fracture Acute spinal cord injury (< 1 month) Prophylaxis Regimen: Total Risk Factor Score Risk Level Prophylaxis Regimen 0-1 Low Early ambulation 2 Moderate Order ONE of the following: *Sequential Compression Device (SCD) *Heparin 5000 units SQ BID 3-4 Higher Order ONE of the following medications: *Heparin 5000 units SQ TID *Enoxaparin/Lovenox 40 mg SQ daily (WT < 150 kg, CrCl > 30 mL/min) *Enoxaparin/Lovenox 30 mg SQ daily (WT < 150 kg, CrCl > 10-29 mL/min) *Enoxaparin/Lovenox 30 mg SQ BID (WT < 150 kg, CrCl > 30 mL/min) AND/OR *Sequential Compression Device (SCD) 5 or more Highest Order ONE of the following medications: *Heparin 5000 units SQ TID (Preferred with Epidurals) *Enoxaparin/Lovenox 40 mg SQ daily (WT < 150 kg, CrCl > 30 mL/min) *Enoxaparin/Lovenox 30 mg SQ daily (WT < 150 kg, CrCl > 10-29 mL/min) *Enoxaparin/Lovenox 30 mg SQ BID (WT < 150 kg, CrCl > 30 mL/min) AND *Sequential Compression Device (SCD) Assessment and Plan (1) History of hip surgery: Code(s): Z98.890 - Other specified postprocedural states Status: Acute Plan 88-year-old white male admitted for C6 and C7 fractures Cervical spine fractures Discussed plain films with neurosurgery, recommends Mora J collar and immobilization for 6 weeks, outpatient follow-up -Pain medication as warranted Scalp laceration Appropriate suture removal after outpatient -Can consider decreasing aspirin from 325-81 mg Hypertension History of arrhythmia History of CVA Home Coreg, simvastatin Hypothyroidism Home levothyroxine Unsteady gait PT eval BPH Home finasteride Dementia Mood disorder Home sertraline Addendum: Patient originally was anticipated to warrant a 2 midnight stay. However his overall clinical status stabilized and improved faster than expected. Patient stable to be discharged to hospice. H&P: Quality VTE Deep Vein Thrombosis/Pulmonary Embolism Present on Admission: No
[2018-10-07 12:30] VITALS: BP 151/85; PULSE 108; RESP 24; TEMP 96.5
[2018-10-07 15:15] VITALS: O2SAT 95
--- NOTE | 2018-10-07 20:11 | ECG ---
Date Performed: 10/06/2018 Time Performed: 22:04:46 PTAGE: 88 years EKG: ELECTRONIC VENTRICULAR PACEMAKER ABNORMAL RHYTHM ECG PREVIOUS TRACING : 03/06/2018 23.38 Since the previous tracing, no significant change noted DOCTOR: Cecilia Cardozo Interpretating Date/Time 10/07/2018 20:10:28
[2018-10-08] MEDS ORDERED: levoFLOXacin 750 MG Tablet PO SCH (21:00)
== END 2018-10-07 15:21 | disposition hospice, inpatient (51) | DRG 552 ==
LOC: PHED 20:56 → PHEDA 20:56 → OBSVTOIN 23:38 → PH3 10-07 00:30
PROVIDERS: ADMIT Hospitalist; ATTEND Hospitalist
CPT/HCPCS: 70450; 72125; 80053; 81001; 82550; 84484; 85025; 87086; 90715; 93005; J1956; L0150; L0172